=== PATIENT | male | born 1975 | race Caucasian/White ===

== ENCOUNTER 2023-11-10 16:51 | Emergency (ER) | payer OTHER ==
[~2023-11-10] VITALS: Ht 170.2 cm; Wt 72.6 kg
[2023-11-10 16:55] VITALS: BP_SYST 161; PULSE 70; RESP 18; TEMP 98.6; O2SAT 97
[2023-11-10 18:14] LABS: BASOPHILS # (AUTO) 0.1 K/uL (0.0-0.2); BASOPHILS % (AUTO) 1.4 % (0.0-2.0); EOSINOPHILS # (AUTO) 0.7 K/uL (0.0-0.4); EOSINOPHILS % (AUTO) 9.6 % (0.0-4.0); HEMOGLOBIN 10.6 g/dL (14.0-18.0); LYMPHOCYTES # (AUTO) 1.6 K/uL (1.0-5.5); LYMPHOCYTES % (AUTO) 23.5 % (20.5-51.5); MEAN CORPUSCULAR HEMOGLOBIN 19 pg (27-31); MEAN CORPUSCULAR HGB CONC 31 % (32-36); MEAN CORPUSCULAR VOLUME 62 fL (79.0-98.0); MONOCYTES # (AUTO) 0.6 K/uL (0.0-1.0); MONOCYTES % (AUTO) 8.7 % (1.7-9.3); NEUTROPHILS # (AUTO) 3.9 K/uL (1.8-7.7); NEUTROPHILS % (AUTO) 56.8 % (40.0-70.0); PLATELET COUNT (AUTO) 327 K/uL (130-430); RED CELL DISTRIBUTION WIDTH 20.9 % (9.0-15.0); WHITE BLOOD COUNT (AUTO) 6.8 K/uL (4.8-10.8)
[2023-11-10 18:21] LABS: ERYTHROCYTE SEDIMENTATION RATE 14 MM/HR (0-15)
[2023-11-10] MEDS: DIPHENHYDRAMINE INJ 50 MG/ML VIAL IVP ONE (18:48)
[2023-11-10] MEDS: METOCLOPRAMIDE HCL 10 MG/2 ML VIAL IVP ONE (18:48)
[2023-11-10 19:15] LABS: CALCIUM 8.9 mg/dL (8.4-11.0); CREATININE 1.12 mg/dL (0.55-1.30)
[2023-11-10] MEDS ORDERED: HYDR-3917 PO (19:36)
[2023-11-10] MEDS ORDERED: IBUP-1971 PO (19:36)
[2023-11-10 19:44] VITALS: BP_SYST 132; PULSE 83; RESP 18; TEMP 97.7; O2SAT 99
[2023-11-10 20:13] LABS: ANISOCYTOSIS 3+; HYPOCHROMASIA 2+; OVALOCYTES MANY
== END 2023-11-10 19:38 | disposition home or self-care (01) ==
LOC: SED 16:51
DX: R51.9 Headache, unspecified (principal); Z79.899 Other long term (current) drug therapy
CPT/HCPCS: 99285; 96374; 70450; 96375; 80048; 85025; 85610; 85651; 85730; 36415; 82397; J1200; J2765